=== PATIENT | male | born 1945 | race Caucasian/White ===

== ENCOUNTER 2016-06-05 15:18 | Emergency (ER) | payer OTHER ==
[~2016-06-05] VITALS: Ht 190.5 cm; Wt 110.0 kg
[2016-06-05 15:25] VITALS: BP 150/97; PULSE 90; RESP 20; TEMP 101.2; O2SAT 94
[2016-06-05] MEDS ORDERED: PROT40TA PO (15:49)
[2016-06-05] MEDS ORDERED: ASPI325T PO (15:49)
[2016-06-05] MEDS ORDERED: METO25TA3 PO (15:49)
[2016-06-05] MEDS ORDERED: LISI20TA3 PO (15:49)
[2016-06-05] MEDS ORDERED: SODIUM CHLOR 0.9% 1000 ML INJ 1,000 ML IV ONE (16:00)
[2016-06-05] MEDS ORDERED: ACETAMINOPHEN 325 MG TAB PO ONE (16:00)
--- NOTE | 2016-06-05 16:04 | PD ---
HPI Chief Complaint: Respiratory Symptoms Time Seen by Provider: 15:50 Travel History International Travel<30 days: No Contact w/Intl Traveler<30days: No Traveled to known affect area: No History of Present Illness HPI 71-year-old male says he been feeling very weak for last 2 days. He has been coughing. He has fever today but he is not sure when it started. He was a smoker until 2011. He's been taking some Mucinex without much response. He was feeling a little bit short of breath earlier. He has a history of aortic aneurysm wasn't sure was operated on. He has had coronary artery bypass grafting 4. He has a history of hypertension and hypercholesterolemia. He is on lisinopril and metoprolol. 2013 he was told that he had a spot on his lung which have not changed for several years. He has a history of prostate cancer that was treated with radiation. PFSH Past Medical History Cancer: Yes (Prostate) Cardiovascular Problems: Yes Coronary Artery Disease: Yes Hypertension: Yes Radiation Therapy: Yes Tetanus Vaccination: Unknown Influenza Vaccination: No Past Surgical History Abdominal Surgery: Yes (AAA repair X's 2, hernia, colon ) Cholecystectomy: Yes Coronary Artery Bypass Graft: Yes Social History Alcohol Use: No Tobacco Use: No Substance Use: No Allergies-Medications (Allergen,Severity, Reaction): Coded Allergies: Penicillin (Verified Allergy, Unknown, 06/05/16) Reported Meds & Prescriptions Reported Meds & Active Scripts Active Tamiflu (Oseltamivir Phosphate) 75 Mg Cap 75 Mg PO BID 5 Days Reported Aspirin 325 Mg Tab 325 Mg PO DAILY Protonix (Pantoprazole Sodium) 40 Mg Tab 40 Mg PO BID Metoprolol Tartrate 25 Mg Tab 40 Mg PO DAILY Lisinopril-Hctz 20-25 Mg Tab 0.5 Tab PO BID Review of Systems Eyes: No: Diploplia, Blurred Vision HENT: No: Headaches Cardiovascular: Positive: Chest Pain or Discomfort Respiratory: Positive: Cough, Shortness of Breath Gastrointestinal: No: Vomiting, Diarrhea Genitourinary: No: Urgency Musculoskeletal: Positive: Myalgias, Weakness Skin: No Rash Hematologic/Lymphatic: No: Easy Bruising Physical Exam Narrative GENERAL: Well-developed male. Temp is 101.2 on arrival SKIN: Warm and dry. HEAD: Atraumatic. Normocephalic. EYES: Pupils equal and round. No scleral icterus. No injection or drainage. ENT: No nasal bleeding or discharge. Mucous membranes pink and moist. NECK: Trachea midline. No JVD. CARDIOVASCULAR: Regular rate and rhythm. No murmur appreciated. RESPIRATORY: No accessory muscle use. Clear to auscultation. Breath sounds equal bilaterally. GASTROINTESTINAL: Abdomen soft, non-tender, nondistended. Hepatic and splenic margins not palpable. MUSCULOSKELETAL: No obvious deformities. No clubbing. No cyanosis. No edema. NEUROLOGICAL: Awake and alert. No obvious cranial nerve deficits. Motor grossly within normal limits. Normal speech. PSYCHIATRIC: Appropriate mood and affect; insight and judgment normal. Data Data Last Documented VS Vital Signs Date Time Temp Pulse Resp B/P Pulse Ox O2 Delivery O2 Flow Rate FiO2 06/05/16 17:54 16 06/05/16 16:50 96 Nasal Cannula 4 06/05/16 15:25 101.2 90 150/97 Orders Complete Blood Count With Diff (06/05/16 15:59) Comprehensive Metabolic Panel (06/05/16 15:59) Lactic Acid Sepsis Protocol (06/05/16 15:59) Urinalysis - C+S If Indicated (06/05/16 15:59) Blood Culture (06/05/16 15:59) Chest, Pa & Lat (06/05/16 15:59) Blood Glucose (06/05/16 15:59) Ecg Monitoring (06/05/16 15:59) Iv Access Insert/Monitor (06/05/16 15:59) Oximetry (06/05/16 15:59) Oxygen Administration (06/05/16 15:59) Sodium Chlor 0.9% 1000 Ml Inj (Ns 1000 M (06/05/16 16:00) Acetaminophen (Tylenol) (06/05/16 16:15) B-Type Natriuretic Peptide (06/05/16 16:26) Influenzae A/B Antigen (06/05/16 16:39) Oseltamivir (Tamiflu) (06/05/16 17:30) Labs Laboratory Tests Test 06/05/16 06/05/16 06/05/16 16:20 16:25 16:40 White Blood Count 5.9 TH/MM3 Red Blood Count 4.39 MIL/MM3 Hemoglobin 12.4 GM/DL Hematocrit 36.3 % Mean Corpuscular Volume 82.7 FL Mean Corpuscular Hemoglobin 28.3 PG Mean Corpuscular Hemoglobin 34.2 % Concent Red Cell Distribution Width 15.0 % Platelet Count 162 TH/MM3 Mean Platelet Volume 7.9 FL Neutrophils (%) (Auto) 65.4 % Lymphocytes (%) (Auto) 18.9 % Monocytes (%) (Auto) 13.2 % Eosinophils (%) (Auto) 1.1 % Basophils (%) (Auto) 1.4 % Neutrophils # (Auto) 3.8 TH/MM3 Lymphocytes # (Auto) 1.1 TH/MM3 Monocytes # (Auto) 0.8 TH/MM3 Eosinophils # (Auto) 0.1 TH/MM3 Basophils # (Auto) 0.1 TH/MM3 CBC Comment DIFF FINAL Differential Comment Sodium Level 139 MEQ/L Potassium Level 3.9 MEQ/L Chloride Level 101 MEQ/L Carbon Dioxide Level 30.8 MEQ/L Anion Gap 7 MEQ/L Blood Urea Nitrogen 16 MG/DL Creatinine 1.50 MG/DL Estimat Glomerular Filtration 46 ML/MIN Rate Random Glucose 110 MG/DL Calcium Level 8.2 MG/DL Total Bilirubin 0.5 MG/DL Aspartate Amino Transf 14 U/L (AST/SGOT) Alanine Aminotransferase 14 U/L (ALT/SGPT) Alkaline Phosphatase 57 U/L Total Protein 7.5 GM/DL Albumin 3.4 GM/DL Lactic Acid Level 1.4 mmol/L B-Type Natriuretic Peptide 198 PG/ML MDM Medical Decision Making Medical Screen Exam Complete: Yes Emergency Medical Condition: Yes Medical Record Reviewed: Yes Differential Diagnosis Differential includes pneumonia, sepsis, UTI Narrative Course Chest x-ray is negative. His white count is 5.9. Lactate is 1.4. Tests for influenza is positive for influenza a. Patient has been sick for 2-3 days. I have explained that the Tamiflu may not be very effective because it is being given late in the course but he doesn't wish to take it. He will be released with instructions to take Tylenol and Motrin for fever, force fluids Diagnosis Primary Impression: Influenza A Additional Instructions: take tylenol or motrin for fever, force fluids Scripts Oseltamivir (Tamiflu)75 Mg Cap75 Mg PO BID 5 Days Ref 0 Prov:Boyd Andres MD 06/05/16 Disposition: 01 DISCHARGE HOME Condition: Stable Boyd Andres MD Jun 05, 2016 16:04
[2016-06-05] MEDS ORDERED: ACETAMINOPHEN 500 MG CPLT PO ONE (16:15)
--- NOTE | 2016-06-05 16:28 | RADHPO ---
EXAM DATE/TIME: 06/05/2016 16:09 [facility] COMPARISON: No previous studies available for comparison. INDICATIONS : Patient states cough for two days. Abdominal pain. MEDICAL HISTORY : Hypertension. SURGICAL HISTORY : CABG. Abdominal aortic aneurysm repair. ENCOUNTER: Initial ACUITY: 2 days PAIN SCORE: 6/10 LOCATION: Bilateral chest FINDINGS: The cardiac silhouette is normal in transverse diameter. Median sternotomy wires are present. The jacob gs are free of acute parenchymal opacity. No effusions are identified. CONCLUSION: 1. Cardiomegaly. No acute pulmonary disease. Walter Wood MD on June 05, 2016 at 16:25 Board Certified Radiologist. This report was verified electronically.
[2016-06-05 16:36] LABS: AUTOMATED NEUTROPHIL # 3.8 TH/MM3 (1.8-7.7); BASOPHIL # 0.1 TH/MM3 (0-0.2); BASOPHIL % 1.4 % (0.0-2.0); EOSINOPHIL # 0.1 TH/MM3 (0-0.4); EOSINOPHIL % 1.1 % (0.0-4.0); HEMATOCRIT 36.3 % (39.0-51.0); HEMO FLAGS DIFF FINAL; LYMPH % 18.9 % (9.0-44.0); LYMPHOCYTE # 1.1 TH/MM3 (1.0-4.8); MEAN CELL VOLUME 82.7 FL (80.0-100.0); MEAN CORPUSCULAR HEMOGLOBIN 28.3 PG (27.0-34.0); MEAN CORPUSCULAR HGB CONC 34.2 % (32.0-36.0); MONO % 13.2 % (0.0-8.0); NEUT % 65.4 % (16.0-70.0); PLATELET COUNT 162 TH/MM3 (150-450); RED BLOOD COUNT 4.39 MIL/MM3 (4.50-5.90); WHITE BLOOD COUNT 5.9 TH/MM3 (4.0-11.0)
[2016-06-05 16:43] LABS: CHLORIDE 101 MEQ/L (98-107); POTASSIUM 3.9 MEQ/L (3.5-5.1); SODIUM (NA) 139 MEQ/L (136-145)
[2016-06-05 16:47] LABS: ANION GAP 7 MEQ/L (5-15); BICARBONATE 30.8 MEQ/L (21.0-32.0); BLOOD UREA NITROGEN 16 MG/DL (7-18)
[2016-06-05 16:50] VITALS: O2SAT 96
[2016-06-05 16:50] LABS: ALT (GPT) 14 U/L (12-78); AST (GOT) 14 U/L (15-37); GLOMERULAR FILTRATION RATE 46 ML/MIN (>89)
[2016-06-05 16:51] LABS: TOTAL BILIRUBIN ADULT 0.5 MG/DL (0.2-1.0)
[2016-06-05 16:53] LABS: ALKALINE PHOSPHATASE 57 U/L (45-117)
[2016-06-05 17:06] LABS: BLOOD, URINE SMALL (NEG); GLUCOSE,URINE NEG (NEG); KETONE, URINE NEG (NEG); NITRITE,URINE NEG (NEG)
[2016-06-05] MEDS ORDERED: OSEL75 PO (17:27)
[2016-06-05] MEDS ORDERED: OSELTAMIVIR PHOSPHATE 75 MG CAP PO ONE (17:30)
[2016-06-05 18:09] LABS: METHOD OF COLLECTION CATH; URINE COLOR YELLOW (YELLW/STRAW)
[2016-06-05 18:12] LABS: WBC, URINE 0-2 /hpf (0-5)
[2016-06-05 18:13] LABS: COMMENT (UR) CATH-CULT NOT IND; CULTURE IF INDICATED CATH CULTURE NOT IND
[2016-06-05 18:25] VITALS: BP 145/72; PULSE 78; RESP 18; TEMP 99.9; O2SAT 94
== END 2016-06-05 18:40 | disposition home or self-care (01) ==
LOC: PHED 15:18
DX: J09.X2 Influenza due to identified novel influenza A virus with other respiratory manifestations (principal); R05 Cough; I10 Essential (primary) hypertension; E78.00 Pure hypercholesterolemia, unspecified; I25.10 Atherosclerotic heart disease of native coronary artery without angina pectoris
CPT/HCPCS: 71020; 80053; 81001; 83605; 83880; 85025; 87040; 87804; 96360; 99285; J7030